=== PATIENT | male | born 1960 ===

== ENCOUNTER 2018-08-12 01:18 | Emergency (ER) | payer SELFPAY ==
[2018-08-12 01:19] VITALS: BMI 32.8
[2018-08-12 01:28] VITALS: TEMP 97.4
[2018-08-12] MEDS ORDERED: Dexamethasone 4 mg/1 ml IM STA (02:21)
--- NOTE | 2018-08-12 02:40 | C.PDOC ---
History Of Present Illness 58 year old male presents to the ED c/o lower back pain that started today. Patient reports that today after walking to the bathroom patient felt lower back pain and weakness in his legs. Patient states he lifts heavy objects at work. Patient also c/o pain and swelling to the right knee. Patient denies fever, chills, trauma, CP, SOB, saddle anesthesia, bowel incontinence, weakness, numbness. Time Seen by Provider: 08/12/18 01:33 Chief Complaint (Nursing): Back Pain History Per: Patient History/Exam Limitations: no limitations Onset/Duration Of Symptoms: Hrs Current Symptoms Are (Timing): Still Present Quality Of Discomfort: "Pain" Exacerbating Factor(s): Turning, Movement Recent travel outside of the [place]: No Additional History Per: Patient Past Medical History Reviewed: Historical Data, Nursing Documentation, Vital Signs Vital Signs: Last Vital Signs Temp 97.4 F L 08/12/18 01:27 Pulse 62 08/12/18 01:27 Resp 22 08/12/18 01:27 BP 140/76 08/12/18 01:27 Pulse Ox 99 08/12/18 01:27 - Medical History PMH: HTN, Hypercholesterolemia Surgical History: No Surg Hx Family History: States: Unknown Family Hx - Social History Hx Alcohol Use: Yes Hx Substance Use: Yes Review Of Systems Constitutional: Negative for: Fever, Chills Eyes: Negative for: Vision Change ENT: Negative for: Ear Pain Cardiovascular: Negative for: Chest Pain Respiratory: Negative for: Shortness of Breath Gastrointestinal: Negative for: Nausea, Vomiting, Abdominal Pain Genitourinary: Negative for: Incontinence Musculoskeletal: Positive for: Back Pain, Leg Pain Skin: Negative for: Rash Neurological: Negative for: Weakness, Numbness, Headache, Dizziness Physical Exam - Physical Exam Appears: Non-toxic, No Acute Distress Skin: Normal Color, Warm, Dry, No Rash Head: Atraumatic, Normacephalic Eye(s): bilateral: Normal Inspection, PERRL, EOMI Oral Mucosa: Moist Neck: Normal ROM, Supple Chest: Symmetrical Cardiovascular: Rhythm Regular, No Friction Rub, No Murmur Respiratory: Normal Breath Sounds, No Rales, No Rhonchi, No Wheezing Gastrointestinal/Abdominal: Soft, No Tenderness, No Guarding, No Rebound Back: No Vertebral Tenderness, Paraspinal Tenderness (paralumbar ), Straight Leg Raising ((+) bilateral) Extremity: Normal ROM, No Tenderness, Capillary Refill (< 2 seconds), No Swelling Pulses: Left Dorsalis Pedis: Normal, Right Dorsalis Pedis: Normal Neurological/Psych: Oriented x3, Normal Speech, Normal Cognition, Normal Motor, Normal Sensation Gait: Steady ED Course And Treatment O2 Sat by Pulse Oximetry: 99 (ON RA) Pulse Ox Interpretation: Normal Medical Decision Making Medical Decision Making: Plan: * Flexeril 10 mg PO * Decadron 8 mg IM * Toradol 15 mg IM On re-exam, the patient reports improvement of symptoms. Lungs are CTA, heart is RRR, abdomen is soft, non-tender and tolerating PO well. Ambulatory in the ED with steady gait. Follow up with the medical doctor within 1-2 days. Return if worsened. Disposition - Disposition Referrals: Carlo Roa MD [Non-Staff] - [facility] Disposition: HOME/ ROUTINE Disposition Time: 03:45 Condition: STABLE Additional Instructions: Follow up with the medical doctor within 1-2 days. Return if worsened. 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 - Scribe Statement The provider has reviewed the documentation as recorded by the Scribe Michael Fuentes All medical record entries made by the Lloydibdeven were at my direction and personally dictated by me. I have reviewed the chart and agree that the record accurately reflects my personal performance of the history, physical exam, medical decision making, and the department course for this patient. I have also personally directed, reviewed, and agree with the discharge instructions and disposition.
[2018-08-12 04:06] VITALS: BP 130/80; PULSE 78; RESP 14; O2SAT 97
--- NOTE | 2018-08-12 11:44 | RAD ---
Date of service: 08/12/2018 PROCEDURE: Radiographs of the Lumbar Spine. HISTORY: back pain COMPARISON: No prior. FINDINGS: BONES: There is normal alignment of the lumbar vertebral bodies. There is normal lumbar lordosis. There is no acute fracture, spondylolysis or spondylolisthesis. Bone mineralization is normal. DISC SPACES: The multilevel degenerative changes with anterior spurring, reduced disc heights and multilevel facet arthropathy, worse at L5-S1. OTHER FINDINGS: There are advanced atherosclerotic aortic calcifications. There are no pathologic soft tissue calcifications. Both sacroiliac joints are normal. IMPRESSION: No acute fracture, spondylolysis or spondylolisthesis. Multilevel degenerative disc disease, worse at L5-S1.
--- NOTE | 2018-08-12 11:49 | RAD ---
Date of service: 08/12/2018 PROCEDURE: Right Knee Radiographs. HISTORY: knee pain, swelling COMPARISON: None. FINDINGS: BONES: Bone alignment and mineralization are normal. There is no acute displaced fracture or bone destruction. JOINTS: There is severe tricompartmental degenerative osteoarthrosis with reduced joint spaces, marginal osteophytes and tibial spiking, worse in the medial compartment with near complete loss of joint space. JOINT EFFUSION: There is a small suprapatellar joint effusion. OTHER FINDINGS: None. IMPRESSION: No acute fracture or dislocation. Severe tricompartmental osteoarthrosis, worse in the medial compartment with near complete loss of joint space. Small suprapatellar joint effusion.
== END 2018-08-12 04:06 | disposition home or self-care (01) ==
LOC: C.ER 01:18
DX: M25.561 Pain in right knee (principal); M54.5 Low back pain; M19.90 Unspecified osteoarthritis, unspecified site
CPT/HCPCS: 72100; 73562; 96372; 99283; J1100; J1885